=== PATIENT | male | born 1985 ===

== ENCOUNTER 2025-02-24 13:03 | Emergency (ER) | payer OTHER ==
[~2025-02-24] VITALS: Ht 175.3 cm; Wt 81.7 kg
[2025-02-24] MEDS ORDERED: Ketorolac Tromethamine 15mg Vial IV ONE (15:30)
[2025-02-24] MEDS ORDERED: Robaxin750 MG PO (15:33)
== END 2025-02-24 15:41 | disposition home or self-care (01) ==
LOC: ER 13:03
DX: S16.9XXA Unspecified injury of muscle, fascia and tendon at neck level, initial encounter (principal); M50.322 Other cervical disc degeneration at C5-C6 level; V89.2XXA Person injured in unspecified motor-vehicle accident, traffic, initial encounter
CPT/HCPCS: 70498; 96374-59; 99284-25; J1885; Q9967